=== PATIENT | female | born 1985 | race Caucasian/White ===

== ENCOUNTER 2016-06-28 21:16 | Emergency (ER) | payer MEDICARE ==
--- NOTE | 2016-06-29 19:09 | ER ---
ADMIT: 06/28/2016 RM/LOC: ER [facility] MR#: [id number] [address] [id number] RACIEL, JESUS [place], [place] [address] Emergency Room Report SEX: F AGE: 30 : 1985 DATE: 06/28/2016 HISTORY OF PRESENT ILLNESS: The patient is a 30-year-old female, came to the ER with chief complaint of left anterior chest pain since 7:00 a.m. Pain has started gradually, increases in severity and increases with palpation of the left anterior chest and deep breathing. The patient denies similar pain in the past. The patient denies any trauma. Pain is not related to walking. The patient is not using any hormonal contraceptives. PHYSICAL EXAMINATION: VITAL SIGNS: The patient has normal O2 saturation of 99% on room air, is not tachypneic, is not tachycardic, blood pressure is stable. GENERAL: The patient is sitting in the bed, in no obvious pain or distress. HEAD and NECK : Noncontributory. CHEST: Very tender in the left anterior chest wall without any crepitation. Normal lung sounds bilaterally. HEART: Normal S1, S2 without any murmurs. ABDOMEN: Soft. NEUROLOGICAL: Neuro and motor exam are grossly normal. EXTREMITIES: The patient has normal peripheral pulses in all extremities. The rest of the physical exam is noncontributory. EMERGENCY ROOM COURSE: EKG did not show any signs of arrhythmia or ischemia and was normal sinus rhythm. Chest x-ray was negative for pneumonia, infiltration, pneumothorax, or other abnormalities. Pain was moderately controlled with Percocet p.o. The patient was reassured and discharged to home with return precautions, prescription for breakthrough pain, and follow up with the primary doctor. Navin Pritchard MD/ ally JOB #: [id number] CC: Navin Pritchard MD, Attending Physician Steffen Dolan MD, Family Physician
== END 2016-06-28 23:35 | disposition home or self-care (01) ==
LOC: ER 21:16
DX: R07.89 Other chest pain (principal); F41.9 Anxiety disorder, unspecified; F31.9 Bipolar disorder, unspecified; F43.12 Post-traumatic stress disorder, chronic; F17.200 Nicotine dependence, unspecified, uncomplicated; Z88.2 Allergy status to sulfonamides